=== PATIENT | female | born 1940 | race Caucasian/White ===

== ENCOUNTER 2020-11-20 14:24 | Outpatient (CLI) | payer BC | END 2020-11-20 14:25 | disposition critical access hospital (66) | LOC: EMS 14:24 | DX: R45.851 Suicidal ideations (principal) | CPT/HCPCS: A0425; A0429 ==

== ENCOUNTER 2020-11-20 15:03 | Emergency (ER) | payer BC ==
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
[2020-11-20 15:28] LABS: BASOPHILS # (AUTO) 0.1 10^3/uL (0.0-0.1); BASOPHILS % (AUTO) 0.6 %; EOSINOPHILS # (AUTO) 0.2 10^3/uL (0.0-0.7); EOSINOPHILS % (AUTO) 2.5 %; HCT - HEMATOCRIT 39.6 % (37.0-47.0); HGB - HEMOGLOBIN 13.3 g/dL (12.0-16.0); LYMPHOCYTES # (AUTO) 2.4 10^3/uL (1.5-3.5); LYMPHOCYTES % (AUTO) 29.4 %; MEAN CORPUSCULAR HEMOGLOBIN 31.7 pg (27.0-31.0); MEAN CORPUSCULAR HGB CONC 33.6 g/dL (32.0-36.0); MEAN CORPUSCULAR VOLUME 94.3 fL (81.0-99.0); MEAN PLATELET VOLUME 8.8 fL (7.9-10.8); MONOCYTES # (AUTO) 0.7 10^3/uL (0.0-1.0); MONOCYTES % (AUTO) 8.4 %; NEUTROPHILS # (AUTO) 4.9 10^3/uL (1.5-6.6); PLT - PLATELET COUNT 325 10^3/uL (130-450); RED CELL DISTRIBUTION WIDTH 13.8 % (12.0-15.0); WHITE BLOOD COUNT 8.3 x10^3/uL (4.8-10.8)
[2020-11-20 15:43] LABS: ACETAMINOPHEN < 10 ug/mL (10-30); ALBUMIN 4.1 g/dL (3.2-5.5); ALBUMIN/GLOBULIN RATIO 1.3 (1.0-2.2); ALKALINE PHOSPHATASE 48 IU/L (42-121); ALT ALANINE AMINOTRANSFERASE 12 IU/L (10-60); AST ASPARTATE AMINOTRANSFERASE 17 IU/L (10-42); BILIRUBIN,TOTAL 0.7 mg/dL (0.2-1.0); BUN - BLOOD UREA NITROGEN 16 mg/dL (6-20); CALCIUM 9.1 mg/dL (8.5-10.3); CARBON DIOXIDE - CO2 25 mmol/L (21-32); CHLORIDE 101 mmol/L (101-111); CREATININE 0.5 mg/dL (0.4-1.0); ETOH - ETHANOL < 5.0 mg/dL; GFR - MDRD 118 (>89); GLUCOSE 99 mg/dL (70-100); LIPASE 25 U/L (22-51); POTASSIUM 3.8 mmol/L (3.5-5.0); SALICYLATE < 6.0 mg/dL; SODIUM 138 mmol/L (135-145); TOTAL PROTEIN 7.3 g/dL (6.7-8.2)
[2020-11-20 16:09] LABS: MUDS CUTOFF CONCENTRATIONS CUTOFF CONC BELOW:
[2020-11-20 16:12] LABS: BILIRUBIN,URINE NEGATIVE (NEGATIVE); GLUCOSE, URINE (UA) NEGATIVE (NEGATIVE); KETONES,URINE (UA) NEGATIVE (NEGATIVE); LEUKOCYTE ESTERASE, URINE TRACE (NEGATIVE); NITRITE,URINE POSITIVE (NEGATIVE); OCCULT BLOOD,URINE SMALL (NEGATIVE); PH,URINE 6.5 PH (5.0-7.5); PROTEIN,URINE NEGATIVE (NEGATIVE); UROBILINOGEN,URINE 0.2 (NORMAL) E.U./dL (NORMAL)
[2020-11-20 16:15] LABS: CLARITY,URINE SL. CLOUDY (CLEAR)
[2020-11-20 16:18] LABS: BACTERIA,URINE Many /HPF (None Seen); MUCUS,URINE Few Strands; RBC,URINE 0-5 /HPF (0-5); SQUAMOUS EPITHELIAL CELL,UR FEW Squamous (<= Few)
[2020-11-20 16:20] LABS: AMPHETAMINE SCREEN,URINE NEGATIVE (NEGATIVE); BARBITURATE SCREEN,UR NEGATIVE (NEGATIVE); BENZODIAZEPINES SCREEN, URINE NEGATIVE (NEGATIVE); COCAINE SCREEN URINE NEGATIVE (NEGATIVE); METHADONE SCREEN, URINE NEGATIVE (NEGATIVE); METHAMPHETAMINES SCREEN, URINE NEGATIVE (NEGATIVE); OPIATE SCREEN, URINE NEGATIVE (NEGATIVE); OXYCODONE SCREEN, URINE NEGATIVE (NEGATIVE); PROPOXYPHENE SCREEN, URINE NEGATIVE (NEGATIVE); THC CANNABINOID SCREEN, URINE NEGATIVE (NEGATIVE); TRICYCLIC ANTIDEPRESSANT,URINE NEGATIVE (NEGATIVE)
[2020-11-20] MEDS ORDERED: IBUPROFEN 600 MG TABLET PO STA (17:42)
[2020-11-20 18:20] LABS: B. PARAPERTUSSIS- RESP PCR PAN NOT DETECTED; B. PERTUSSIS- RESP PCR PANEL NOT DETECTED; C. PNEUMONIAE- RESP PCR PANEL NOT DETECTED; CORONAVIRUS 229E-RESP PCR NOT DETECTED; CORONAVIRUS HKU1-RESP PCR NOT DETECTED; CORONAVIRUS NL63-RESP PCR NOT DETECTED; CORONAVIRUS OC43-RESP PCR NOT DETECTED; HUMAN METAPNEUMOVIRUS NOT DETECTED; INFLUENZA A- RESP PCR PANEL NOT DETECTED; INFLUENZA B - RESP PCR PANEL NOT DETECTED; M. PNEUMONIAE- RESP PCR PANEL NOT DETECTED; PARAINFLUENZA VIRUS 1 NOT DETECTED; PARAINFLUENZA VIRUS 2 NOT DETECTED; PARAINFLUENZA VIRUS 3 NOT DETECTED; PARAINFLUENZA VIRUS 4 NOT DETECTED; RHINOVIRUS/ENTEROVIRUS NOT DETECTED; RSV- RESP PCR PANEL NOT DETECTED; SARS-CoV-2 -RESP PCR PANEL NOT DETECTED
[2020-11-20] MEDS ORDERED: LORazepam 1 MG TABLET PO STA (21:04)
[2020-11-21 04:19] VITALS: BP 133/77
--- NOTE | 2020-11-21 11:58 | ED Physician Documentation ---
ED Addendum - Addendum Addendum: 11/21/20 11:57 Patient has been accepted to [facility]. Appropriate COBRA paperwork completed. Patient has remained calm and compliant here in the emergency department and she continues to wish voluntary hospitalization for mood management and stabilization of her suicidal ideation.
== END 2020-11-21 12:40 ==
LOC: ED 15:03
DX: R45.851 Suicidal ideations (principal); F32.89 Other specified depressive episodes; Z63.0 Problems in relationship with spouse or partner; Z20.822 Contact with and (suspected) exposure to COVID-19
CPT/HCPCS: 0202U; 36415; 80053; 80306; 80307; 80320; 80329; 81001; 83690; 83735; 84443; 85025; 87086; 87181; 93005; 99283; 99285; A9270; J8499; 81003

== ENCOUNTER 2021-01-04 04:00 | Outpatient (CLI) | payer BC, OTHER | END 2021-01-04 04:01 | disposition short-term general hospital (02) | LOC: EMS 04:00 | DX: S69.92XA Unspecified injury of left wrist, hand and finger(s), initial encounter (principal); W18.30XA Fall on same level, unspecified, initial encounter | CPT/HCPCS: A0425; A0429 ==

== ENCOUNTER 2021-08-13 12:05 | Emergency (ER) | payer BC, MEDICARE, OTHER ==
--- NOTE | 2021-08-13 12:30 | ED Physician Documentation ---
PD HPI ABD PAIN - Stated complaint Stated Complaint: ABD PX - Chief complaint Chief Complaint: Abd Pain - History obtained from History obtained from: Patient - History of Present Illness Timing - onset: How many days ago (3) Timing - duration: Days (3) Timing - details: Gradual onset Pain level max: 9 Pain level now: 0 Quality: Pain Location: RLQ, Suprapubic, LLQ Radiation: No: Chest, , Lower back, Left flank, Left shoulder, Right flank, Right shoulder, Upper back Improved by: Laying still Worsened by: Palpation Associated symptoms: Constipation. No: Fever, Nausea, Vomiting, Hematemesis, Diarrhea, Melena, Hematochezia, Dysuria, Hematuria, Chest pain, Dizzy, Near syncope / syncope Similar symptoms before: Has not had sx before Recently seen: Not recently seen - Additional information Additional information: Patient states that she has had a colonoscopy in the past but she does not know when. She does not recall if there were any normal or abnormal findings. She states that she has had multiple intra-abdominal surgeries including multiple hernia repairs in the past. Review of Systems Unable to obtain: Dementia Constitutional: denies: Fever, Chills Respiratory: denies: Cough GI: denies: Nausea, Vomiting, Diarrhea : denies: Dysuria Skin: denies: Rash Musculoskeletal: denies: Neck pain, Back pain Neurologic: denies: Headache PD PAST MEDICAL HISTORY - Past Medical History Cardiovascular: Hypertension, Murmur Respiratory: Pneumonia Neuro: Dementia, Headaches GI: GERD, Colon polyps [employer] SERVER: Fibroids : None HEENT: Chronic vision loss, Chronic hearing loss Psych: None Musculoskeletal: Osteoarthritis - Past Surgical History Past Surgical History: No /CAFET[employer]IA SERVER: Hysterectomy - Present Medications Home Medications: Ambulatory Orders Medication Instructions Recorded Confirmed Amox/Clav 875/125 [Augmentin] 1 tab PO Q12H #20 tablet 08/13/21 - Allergies Allergies/Adverse Reactions: Allergies Allergy/AdvReac Type Severity Reaction Status Date / Time No Known Drug Allergies Allergy Verified 08/13/21 12:16 - Social History Does the pt smoke?: No Smoking Status: Never smoker Does the pt drink ETOH?: No Does the pt have substance abuse?: No - Immunizations Immunizations are current?: Yes - POLST Patient has POLST: No PD ED PE NORMAL - Vitals Vital signs reviewed: Yes - General General: Alert and oriented X 3, No acute distress - HEENT HEENT: Moist mucous membranes - Neck Neck: Supple, no meningeal sign - Cardiac Cardiac: RRR - Respiratory Respiratory: No respiratory distress, Clear bilaterally - Abdomen Abdomen: Soft, Non distended, Other (Tender palpation left lower quadrant, no peritoneal signs.) - Derm Derm: Warm and dry - Neuro Neuro: Alert and oriented X 3 - Psych Psych: Normal mood, Normal affect Results - Vitals Vitals: Vital Signs - 24 hr 08/13/21 08/13/21 08/13/21 12:08 15:54 15:58 Temperature 36.2 C L Heart Rate 123 H 89 Respiratory 14 18 18 Rate Blood Pressure 120/102 H 145/97 H 145/97 H O2 Saturation 100 98 08/13/21 16:01 Temperature 36.7 C Heart Rate Respiratory Rate Blood Pressure O2 Saturation Oxygen O2 Source Room air - Labs Labs: Laboratory Tests 08/13/21 08/13/21 08/13/21 12:40 12:40 12:45 WBC 13.0 H RBC 4.03 L Hgb 13.1 Hct 38.8 MCV 96.3 MCH 32.5 H MCHC 33.8 RDW 14.0 Plt Count 322 MPV 9.0 Neut # (Auto) 9.3 H Lymph # (Auto) 2.2 [place] # (Auto) 1.3 H Eos # (Auto) 0.1 Baso # (Auto) 0.0 Absolute Nucleated RBC 0.00 Nucleated RBC % 0.0 Sodium 137 Potassium 3.7 Chloride 102 Carbon Dioxide 25 Anion Gap 10.0 BUN 13 Creatinine 0.6 Estimated GFR (MDRD) 96 Glucose 103 H Lactic Acid 0.8 Calcium 9.1 Total Bilirubin 0.9 AST 19 ALT 14 Alkaline Phosphatase 51 Total Protein 7.4 Albumin 3.9 Globulin 3.5 Albumin/Globulin Ratio 1.1 Lipase 33 PD MEDICAL DECISION MAKING - ED course Complexity details: reviewed results, re-evaluated patient, considered differential, d/w patient ED course: 81-year-old female with what appears to be acute descending colonic diverticulitis. We will place on antibiotics for this. No evidence of perforation or abscess. Patient does have leukocytosis. Discussed risks and benefits of antibiotics. She elects antibiotic therapy. Patient is well- appearing, nontoxic. She has a hydropic gallbladder, but no tenderness. This does not appear to be the cause of her symptoms today. She also will follow up with her doctor regarding the hypoattenuation in the pancreas. Patient and family counseled regarding signs and symptoms for which I believe and urgent re- evaluation would be necessary. Patient with good understanding of and agreement to plan and is comfortable going home at this time This document was made in part using voice recognition software. While efforts are made to proofread this document, sound alike and grammatical errors may occur. IMPRESSION: 1.Hydropic appearance of the gallbladder with distention of the CBD. 2. 1 cm hypoattenuating lesion within the uncinate process of the pancreas, which is indeterminate. Differential considerations include an IPMN versus pseudocyst. Magnetic resonance imaging may be helpful for further characterization. 3.Short segment, acute descending colon diverticulitis. Departure - Departure Disposition: Home, Self Care Clinical Impression: Diverticulitis Condition: Good Instructions: ED Diverticulitis Follow-Up: your,doctor in 1 week [Other] Prescriptions: Amox/Clav 875/125 [Augmentin] 1 tab PO Q12H #20 tablet Comments: Your prescriptions were sent to [facility] in [place]. Please take all antibiotics until gone. Return if you worsen. There is a small lesion in the pancreas, your doctor may want to perform an MRI of the abdomen to further characterize this. IMPRESSION: 1.Hydropic appearance of the gallbladder with distention of the CBD. 2. 1 cm hypoattenuating lesion within the uncinate process of the pancreas, which is indeterminate. Differential considerations include an IPMN versus pseudocyst. Magnetic resonance imaging may be helpful for further characterization. 3.Short segment, acute descending colon diverticulitis. Discharge Date/Time: 08/13/21 16:00
[2021-08-13 12:44] LABS: BASOPHILS % (AUTO) 0.3 %; EOSINOPHILS # (AUTO) 0.1 10^3/uL (0.0-0.7); EOSINOPHILS % (AUTO) 0.9 %; HCT - HEMATOCRIT 38.8 % (37.0-47.0); HGB - HEMOGLOBIN 13.1 g/dL (12.0-16.0); LYMPHOCYTES # (AUTO) 2.2 10^3/uL (1.5-3.5); LYMPHOCYTES % (AUTO) 16.8 %; MEAN CORPUSCULAR HEMOGLOBIN 32.5 pg (27.0-31.0); MEAN CORPUSCULAR HGB CONC 33.8 g/dL (32.0-36.0); MEAN CORPUSCULAR VOLUME 96.3 fL (81.0-99.0); MONOCYTES # (AUTO) 1.3 10^3/uL (0.0-1.0); MONOCYTES % (AUTO) 10.2 %; NEUTROPHILS # (AUTO) 9.3 10^3/uL (1.5-6.6); NEUTROPHILS % (AUTO) 71.5 %; PLT - PLATELET COUNT 322 10^3/uL (130-450); RED BLOOD COUNT 4.03 10^6/uL (4.20-5.40)
[2021-08-13 12:59] LABS: ALBUMIN 3.9 g/dL (3.2-5.5); ALBUMIN/GLOBULIN RATIO 1.1 (1.0-2.2); BILIRUBIN,TOTAL 0.9 mg/dL (0.2-1.0); CALCIUM 9.1 mg/dL (8.5-10.3); CREATININE 0.6 mg/dL (0.4-1.0); POTASSIUM 3.7 mmol/L (3.5-5.0); TOTAL PROTEIN 7.4 g/dL (6.7-8.2)
[2021-08-13] MEDS ORDERED: IOPAMIDOL-300 100 ML VIAL ONE (13:17)
--- NOTE | 2021-08-13 15:17 | CT Report ---
PROCEDURE: Abdomen/Pelvis W INDICATIONS: diffuse abdominal pain x 3 days CONTRAST: IV CONTRAST: Isovue 300 ml: 100 PO CONTRAST: *NO PO CONTRAST TECHNIQUE: After the administration of intravenous contrast, 5 mm thick sections acquired from the diaphragms to the symphysis. 5 mm thick coronal and sagittal reformats were acquired. For radiation dose reducti on, the following was used: automated exposure control, adjustment of mA and/or kV according to keiry ent size. COMPARISON: None. FINDINGS: Inferior chest: No focal consolidation, pleural effusion, or pneumothorax. No cardiomegaly or perica rdial effusion. Gallbladder: The gallbladder is distended with a smooth thin wall. Hydropic appearance. Biliary tree: Dilatation of the CBD, measuring up to 7.5 mm. Liver: The liver demonstrates normal enhancement, size, and contour. Spleen: Normal enhancement, size and morphology is seen. Pancreas: No contour deforming mass or inflammatory change. A 1 x 1 cm hypoattenuating lesion is seen within the uncinate process of the pancreas, which is indeterminate. Adrenals: Normal size without masses. Kidneys/ureters: Normal size and morphology. No solid masses or hydronephrosis. Vasculature: No evidence of aneurysm or other significant vascular pathology. Lymphatic system: No pathologic enlargement by size criteria. GI/mesentery: No evidence of intestinal obstruction. Moderate stool burden in the ascending colon. Sh ort segment wall thickening of the descending colon (6-18), likely reflecting diverticulitis. Promine nt sigmoid diverticulosis. Peritoneum/Retroperitoneum: No free intraperitoneal gas or large collection. Urinary bladder: Not well distended. Pelvic organs: No significant abnormality. Bones/soft tissues: Multifocal degenerative change. Levocurvature of the lumbar spine. IMPRESSION: 1.Hydropic appearance of the gallbladder with distention of the CBD. 2. 1 cm hypoattenuating lesion within the uncinate process of the pancreas, which is indeterminate. D ifferential considerations include an IPMN versus pseudocyst. Magnetic resonance imaging may be helpf ul for further characterization. 3.Short segment, acute descending colon diverticulitis. Reviewed by: Juan Beth MD on 08/13/2021 3:16 PM PDT Approved by: Juan Beth MD on 08/13/2021 3:16 PM PDT Station ID: [id number]
[2021-08-13] MEDS: AMOX/CLAV 875 MG/125 MG TABLET PO STA (15:42)
[2021-08-13 15:55] VITALS: BP 145/97
[2021-08-13] MEDS: IOPAMIDOL-300 100 ML VIAL IVP ONE (18:18)
== END 2021-08-13 16:00 | disposition home or self-care (01) ==
LOC: ED 12:05
DX: K57.12 Diverticulitis of small intestine without perforation or abscess without bleeding (principal); I10 Essential (primary) hypertension
CPT/HCPCS: 36415; 74177; 80053; 83605; 83690; 85025; 99282; 99284; A9270; Q9967

== ENCOUNTER 2021-09-13 13:57 | Outpatient (CLI) | payer BC | END 2021-09-13 13:58 | disposition critical access hospital (66) | LOC: EMS 13:57 | DX: R45.6 Violent behavior (principal); R41.0 Disorientation, unspecified | CPT/HCPCS: A0425; A0429 ==

== ENCOUNTER 2021-09-13 14:37 | Emergency (ER) | payer BC ==
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
[2021-09-13 15:07] LABS: BASOPHILS % (AUTO) 0.6 %; EOSINOPHILS # (AUTO) 0.1 10^3/uL (0.0-0.7); EOSINOPHILS % (AUTO) 2.5 %; HCT - HEMATOCRIT 39.8 % (37.0-47.0); LYMPHOCYTES # (AUTO) 1.4 10^3/uL (1.5-3.5); LYMPHOCYTES % (AUTO) 26.5 %; MEAN CORPUSCULAR HEMOGLOBIN 31.7 pg (27.0-31.0); MEAN CORPUSCULAR HGB CONC 32.7 g/dL (32.0-36.0); MEAN CORPUSCULAR VOLUME 97.1 fL (81.0-99.0); MEAN PLATELET VOLUME 9.1 fL (7.9-10.8); MONOCYTES # (AUTO) 0.6 10^3/uL (0.0-1.0); MONOCYTES % (AUTO) 10.6 %; NEUTROPHILS # (AUTO) 3.2 10^3/uL (1.5-6.6); NEUTROPHILS % (AUTO) 59.6 %; PLT - PLATELET COUNT 380 10^3/uL (130-450); RED CELL DISTRIBUTION WIDTH 13.7 % (12.0-15.0); WHITE BLOOD COUNT 5.3 x10^3/uL (4.8-10.8)
[2021-09-13 15:07] LABS: MUDS CUTOFF CONCENTRATIONS CUTOFF CONC BELOW:
[2021-09-13 15:17] LABS: BILIRUBIN,URINE NEGATIVE (NEGATIVE); GLUCOSE, URINE (UA) NEGATIVE (NEGATIVE); KETONES,URINE (UA) TRACE mg/dL (NEGATIVE); LEUKOCYTE ESTERASE, URINE NEGATIVE (NEGATIVE); NITRITE,URINE NEGATIVE (NEGATIVE); OCCULT BLOOD,URINE SMALL (NEGATIVE); PROTEIN,URINE NEGATIVE (NEGATIVE); UROBILINOGEN,URINE 0.2 (NORMAL) E.U./dL (NORMAL)
[2021-09-13 15:22] LABS: ACETAMINOPHEN < 10 ug/mL (10-30); ALBUMIN 4.1 g/dL (3.2-5.5); ALBUMIN/GLOBULIN RATIO 1.1 (1.0-2.2); ALKALINE PHOSPHATASE 55 IU/L (42-121); ALT ALANINE AMINOTRANSFERASE 14 IU/L (10-60); AST ASPARTATE AMINOTRANSFERASE 23 IU/L (10-42); BILIRUBIN,TOTAL 0.6 mg/dL (0.2-1.0); BUN - BLOOD UREA NITROGEN 17 mg/dL (6-20); CALCIUM 9.2 mg/dL (8.5-10.3); CARBON DIOXIDE - CO2 29 mmol/L (21-32); CHLORIDE 102 mmol/L (101-111); CREATININE 0.7 mg/dL (0.4-1.0); ETOH - ETHANOL 6.9 mg/dL; GFR - MDRD 80 (>89); GLUCOSE 110 mg/dL (70-100); LIPASE 95 U/L (22-51); POTASSIUM 3.9 mmol/L (3.5-5.0); SALICYLATE < 6.0 mg/dL; SODIUM 139 mmol/L (135-145); TOTAL PROTEIN 7.7 g/dL (6.7-8.2)
[2021-09-13 15:35] LABS: CLARITY,URINE CLEAR (CLEAR)
[2021-09-13 15:36] LABS: AMPHETAMINE SCREEN,URINE NEGATIVE (NEGATIVE); BARBITURATE SCREEN,UR NEGATIVE (NEGATIVE); BENZODIAZEPINES SCREEN, URINE NEGATIVE (NEGATIVE); COCAINE SCREEN URINE NEGATIVE (NEGATIVE); METHADONE SCREEN, URINE NEGATIVE (NEGATIVE); METHAMPHETAMINES SCREEN, URINE NEGATIVE (NEGATIVE); OPIATE SCREEN, URINE NEGATIVE (NEGATIVE); OXYCODONE SCREEN, URINE NEGATIVE (NEGATIVE); PROPOXYPHENE SCREEN, URINE NEGATIVE (NEGATIVE); THC CANNABINOID SCREEN, URINE NEGATIVE (NEGATIVE); TRICYCLIC ANTIDEPRESSANT,URINE NEGATIVE (NEGATIVE)
[2021-09-13 15:45] LABS: BACTERIA,URINE Rare /HPF (None Seen); MUCUS,URINE Moderate Strands; SQUAMOUS EPITHELIAL CELL,UR FEW Squamous (<= Few); WBC,URINE 0-3 /HPF (0-5)
--- NOTE | 2021-09-15 15:40 | ED Physician Documentation ---
ED Addendum - Addendum Addendum: 09/15/21 15:40 I took her for a walk today around the grounds. She was calm and cooperative, we looked at the simon and discussed her upbringing. She is frustrated by the situation but there does not seem to be an end to her boarding insight given the circumstances.
[2021-09-17] MEDS ORDERED: LORazepam 1 MG TABLET PO STA (14:50)
--- NOTE | 2021-09-17 14:54 | ED Physician Documentation ---
ED Addendum - Addendum Addendum: 09/17/21 14:53 Patient continues to board in the emergency department as alternative housing plans are sought. She continues to be seen by social work. At this time no long-term care or memory assisted facility seems available. Her continues to refuse to take her home as he does not feel safe with her there. She remains hemodynamically stable. However this afternoon she has become agitated, frequently exiting the room and arguing with staff. A one-time dose of Ativan is administered. If symptoms escalate we will then consider Seroquel. 09/17/21 16:54
--- NOTE | 2021-09-18 17:57 | ED Physician Documentation ---
ED Addendum - Addendum Addendum: 09/18/21 17:57 Patient calm and cooperative on my shift. Reportedly she was being considered for [facility] but they have declined her based on aggression which is surprising as she is exhibited no aggression here although sometimes she does talk back to the nurses. Still no clear disposition.
[2021-09-18] MEDS ORDERED: OLANZapine ODT 5 MG TABLET TL ONE (21:00)
--- NOTE | 2021-09-19 07:06 | ED Physician Documentation ---
ED Addendum - Addendum Addendum: 09/19/21 07:06 Overnight Mili Echavarria slept well after receiving TL zyprexa
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
--- NOTE | 2021-09-19 19:34 | ED Physician Documentation ---
ED Addendum - Addendum Addendum: 09/19/21 19:33 Patient continues to board in the emergency department pending a safe disposition. Her continues to feel that she is too aggressive and that he cannot take her home. She has been declined by multiple facilities. They are pending evaluation through [facility] currently. Patient was reevaluated by telepsych today. Telepsych did make medication recommendations which include restarting Aricept as well as Cymbalta. As needed Zyprexa was recommended for agitation. Today during her time in the emergency department she has been hemodynamically stable eating well. She does frequently need to be redirected by ED staff though she has not been combative or assaultive per se
[2021-09-19] MEDS ORDERED: OLANZapine ODT 5 MG TABLET TL ONE (20:46)
[2021-09-19] MEDS: DULoxetine 30 MG CAPSULE PO SCH (21:00)
[2021-09-20] MEDS: DONEPEZIL 5 MG TABLET PO SCH ×2 (01:03→20:06)
[2021-09-20] MEDS: DULoxetine 30 MG CAPSULE PO SCH ×2 (09:38→20:06)
--- NOTE | 2021-09-20 16:02 | ED Physician Documentation ---
ED Addendum - Addendum Addendum: 09/20/21 16:02 She continues to board in the ER. She has been calm and cooperative, o ccasionally wandering out at the nurses station but not aggressive. salvage worker, Danielle, tells me that her to [facility] [place] today and she might be excepted there on Thursday.
[2021-09-20] MEDS ORDERED: OLANZapine ODT 5 MG TABLET TL STA (20:07)
--- NOTE | 2021-09-20 21:23 | ED Physician Documentation ---
ED Addendum - Addendum Addendum: 09/20/21 21:21 The patient was walking around in her room and was a bit anxious. She had not yet received her evening dose of medicines for sleep. The patient in the adjoining room was also wondering slightly despite repeated direction. They both ended close to each other and apparently felt the other was too close to territory so they started yelling at each other and some pushing. Staff immediately was there and the 2. The patient was brought to a different room that was not adjacent to the other anxious 1. She was accepting of extra medication to help with sleep and anxiety. She is following direction and feels comfortable and relaxed at this point.
[2021-09-21] MEDS: DULoxetine 30 MG CAPSULE PO SCH ×2 (08:05→21:18)
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
[2021-09-21] MEDS: DONEPEZIL 5 MG TABLET PO SCH (21:18)
[2021-09-22] MEDS: DULoxetine 30 MG CAPSULE PO SCH ×2 (08:49→20:43)
[2021-09-22] MEDS: DONEPEZIL 5 MG TABLET PO SCH (20:43)
[2021-09-23] MEDS: DULoxetine 30 MG CAPSULE PO SCH ×2 (10:21→19:52)
[2021-09-23] MEDS ORDERED: OLANZapine ODT 5 MG TABLET TL ONE (19:43)
[2021-09-23] MEDS: DONEPEZIL 5 MG TABLET PO SCH (19:52)
[2021-09-24] MEDS: DULoxetine 30 MG CAPSULE PO SCH ×2 (10:30→21:31)
[2021-09-24] MEDS: DONEPEZIL 5 MG TABLET PO SCH (21:15)
--- NOTE | 2021-09-25 07:29 | ED Physician Documentation ---
ED Addendum - Addendum Addendum: 09/25/21 07:27 The patient was interviewed by the center director lead teacher and sales from [facility]. They will present the estimated cost to the patient's executor according to the social work notes. Otherwise the patient did have some agitation toward one of the ER techs yesterday morning but was apologetic following. Otherwise no other abnormal interactions through the day and no reports of overnight problems. We will see if there is any forward progress on placement today. Otherwise continuing current medications and diet. The patient has been up and ambulatory in her room and has some slight physical activity in that way. As such she is not really receiving any VTE prophylaxis. Other medications as usual.
[2021-09-25] MEDS: DULoxetine 30 MG CAPSULE PO SCH ×2 (09:43→21:07)
[2021-09-25] MEDS ORDERED: OLANZapine ODT 5 MG TABLET TL ONE (14:15)
--- NOTE | 2021-09-25 14:16 | ED Physician Documentation ---
ED Addendum - Addendum Addendum: 09/25/21 14:16 Patient was wandering in the hallways attempting to go outside. She was mildly agitated and argumentative with staff. She was however able to be redirected easily into her room. Based on recent telepsych recommendations will medicate with 5 mg of Zyprexa for acute anxiolysis.
[2021-09-25] MEDS: DONEPEZIL 5 MG TABLET PO SCH (21:07)
[2021-09-26] MEDS: DULoxetine 30 MG CAPSULE PO SCH ×2 (08:53→21:20)
--- NOTE | 2021-09-26 11:39 | ED Physician Documentation ---
ED Addendum - Addendum Addendum: 09/26/21 11:37 Patient is continued to board in the emergency department pending social work placement for dementia and memory care. Family still does not feel safe taking the patient home alone. She did require 1 additional dose of Zyprexa over the last 24 hours for some anxiety and agitated behaviors. Pt continues to express frustration with remaining in the ED. She wishes to be discharged home, but understands that we are working to find a safe discharge plan. She is otherwise eating well and well-appearing. Easily verbally redirectable by staff. Her vital signs are unremarkable at this time.
[2021-09-26] MEDS: DONEPEZIL 5 MG TABLET PO SCH (21:20)
--- NOTE | 2021-09-27 09:27 | ED Physician Documentation ---
ED Addendum - Addendum Addendum: 09/27/21 09:19 Social work notes state [facility] as having a commercial sales representative come and interviewed the patient today and was supposed to have talked with her yesterday. Otherwise the patient has been maintaining diet and regular medications. No particular complaints from her. She does not recall meeting me yesterday. Social work note states she was upset emotionally when they talked with her yesterday about frustration being here so long. This is understandable. She has otherwise been directable and following suggestions. She does get verbally upset at times but has not made any gestures towards staff. Slowly waiting for placement.
[2021-09-27] MEDS: DULoxetine 30 MG CAPSULE PO SCH ×2 (09:40→20:30)
--- NOTE | 2021-09-27 14:20 | ED Physician Documentation ---
ED Addendum - Addendum Addendum: 09/27/21 14:19 Patient has been accepted to [facility]. They can accept her on ThursdayOctober 02. I have filled out the preliminary medication and admission form though she will need to be assigned a primary care provider moving forward for future medication refills.
[2021-09-27] MEDS: DONEPEZIL 5 MG TABLET PO SCH (20:30)
[2021-09-27] MEDS ORDERED: OLANZapine ODT 5 MG TABLET TL STA (22:23)
[2021-09-28] MEDS: DULoxetine 30 MG CAPSULE PO SCH ×2 (10:07→22:16)
--- NOTE | 2021-09-28 12:02 | ED Physician Documentation ---
ED Addendum - Addendum Addendum: 09/28/21 12:01 No acute changes overnight. Patient continues to await placement.
[2021-09-28] MEDS ORDERED: OLANZapine ODT 5 MG TABLET TL ONE (18:07)
[2021-09-28] MEDS ORDERED: OLANZapine ODT 5 MG TABLET TL STA (21:20)
[2021-09-28] MEDS: DONEPEZIL 5 MG TABLET PO SCH (22:16)
[2021-09-29] MEDS: DULoxetine 30 MG CAPSULE PO SCH ×2 (09:11→21:05)
[2021-09-29] MEDS ORDERED: OLANZapine ODT 5 MG TABLET TL ONE ×2 (15:42→15:56)
[2021-09-29] MEDS ORDERED: OLANZapine 10 MG VIAL IM STA (15:45)
[2021-09-29] MEDS ORDERED: OLANZapine 10 MG VIAL IM ONE (15:59)
[2021-09-29] MEDS: DONEPEZIL 5 MG TABLET PO SCH (21:05)
--- NOTE | 2021-09-29 22:05 | ED Physician Documentation ---
ED Addendum - Addendum Addendum: 09/29/21 22:04 Patient continues to board in the emergency department. She has been accepted to [facility] on Thursday. She was rather agitated at 1 point in the emergency department and did require Zyprexa but has otherwise been easily redirectable.
[2021-09-30] MEDS: DULoxetine 30 MG CAPSULE PO SCH ×2 (09:10→22:57)
[2021-09-30] MEDS: DONEPEZIL 5 MG TABLET PO SCH (22:57)
[2021-10-01] MEDS: DULoxetine 30 MG CAPSULE PO SCH ×2 (08:42→22:18)
--- NOTE | 2021-10-01 12:29 | ED Physician Documentation ---
ED Addendum - Addendum Addendum: 10/01/21 12:29 Patient continues to board in the emergency department, wandering at times but generally calm and cooperative and seemingly doing well on her current medications. Plan for disposition tomorrow per social work notes.
[2021-10-01] MEDS: DONEPEZIL 5 MG TABLET PO SCH (22:18)
[2021-10-02] MEDS ORDERED: OLANZapine ODT 5 MG TABLET TL STA (01:33)
[2021-10-02] MEDS: DULoxetine 30 MG CAPSULE PO SCH (09:03)
--- NOTE | 2021-10-02 09:28 | ED Physician Documentation ---
ED Addendum - Addendum Addendum: 10/02/21 09:25 The patient had been accepted to [facility]. Today is a day for transfer. Apparently no safe mechanisms available so she is transferred by [facility] ambulance due to concerns of safety with her dementia and wandering. The patient did not have any particular complaints this morning when I spoke with her. She did not recall that she was being transferred but seems content with the information. There was some question of a POLST form. Her apparently is healthcare power of defense attorney and she is having difficulty with dementia so this would be difficult to fill out without an appropriate signature at this time. This will need to be further taken care of if not already done at the facility. Disposition: The patient is transferred to assisted facility in stable condition Diagnosis: 1. Dementia 2. Poor self-care
[2021-10-02 09:43] VITALS: BP 119/91
== END 2021-10-02 09:43 | disposition home or self-care (01) ==
LOC: ED 14:37
DX: F03.91 Unspecified dementia, unspecified severity, with behavioral disturbance (principal); I10 Essential (primary) hypertension; R45.1 Restlessness and agitation; Z20.822 Contact with and (suspected) exposure to COVID-19
CPT/HCPCS: 36415; 80053; 80306; 80307; 80320; 80329; 81001; 83690; 84443; 85025; 87635; 96372; 99283; 99285; A9270; G0425; J8499; Q3014; 81003; 87086